=== PATIENT | male | born 1980 | race Caucasian/White ===

== ENCOUNTER → 2021-07-01 | Outpatient (CLI) | payer MEDICARE ==
[2021-07-01 14:56] LABS: Basophils # (A) 0.08 X 10*3/uL (0.00-0.10); Basophils % (A) 0.8 %; Eosinophils # (A) 0.32 X 10*3/uL (0.04-0.35); Eosinophils % (A) 3.2 %; HCT 53.2 % (39.6-50.0); HGB 17.8 g/dL (13.0-17.0); Immature Grans, Automated 0.3 %; Lymphocytes # (A) 2.79 X 10*3/uL (0.90-5.00); MCH 28.4 pg (27.0-32.0); MCHC 33.5 g/dL (32.0-37.0); Mean Platelet Volume 9.3 fL (9.5-12.2); Monocytes # (A) 0.97 X 10*3/uL (0.20-1.00); Monocytes % (A) 9.7 %; NRBC Per 100 WBC 0 /100 WBCS (0.0-0.0); Neutrophils # (A) 5.79 X 10*3/uL (1.80-7.70); Platelet Count 375 X 10*3/uL (140-440); RBC 6.26 X 10*6/uL (4.40-5.60); WBC 9.98 X 10*3/uL (4.50-10.00)
[2021-07-01 15:27] LABS: ALT 21 U/L (10-49); AST 20 U/L (14-35); African American GFR (CKD) 110.4 (60.0-200.0); Albumin 5.2 g/dL (3.8-4.9); Alkaline Phosphatase 94 U/L (41-126); Blood Urea Nitrogen 10.1 mg/dL (9.0-27.0); Calcium 10.7 mg/dL (8.7-10.3); Carbon Dioxide 24.6 mmol/L (20.0-27.5); Chloride 101 mmol/L (96-109); Chol/HDL Ratio 7.46 Ratio; Globulin 2.2 g/dL (1.6-3.3); Glucose 93 mg/dL (70-110); Non-African American GFR(CKD) 95.3 (60.0-200.0); Potassium 4.7 mmol/L (3.5-5.5); Sodium 138 mmol/L (135-145); Total Protein 7.4 g/dL (6.2-8.2)
== END | disposition home or self-care (01) ==
LOC: LABWHC1 09:37
PROVIDERS: ATTEND Internal Medicine
DX: E78.5 Hyperlipidemia, unspecified (principal); E83.52 Hypercalcemia; F25.9 Schizoaffective disorder, unspecified
CPT/HCPCS: 36415; 80053; 80061; 85025

== ENCOUNTER → 2021-08-06 | Outpatient (CLI) | payer MEDICARE ==
[2021-08-06 16:10] LABS: ALT 19 U/L (10-49); AST 24 U/L (14-35); African American GFR (CKD) 107.9 (60.0-200.0); Albumin 4.7 g/dL (3.8-4.9); Albumin/Globulin Ratio 2.04 (1.60-3.17); Alkaline Phosphatase 81 U/L (41-126); Blood Urea Nitrogen 11.5 mg/dL (9.0-27.0); Chloride 103 mmol/L (96-109); Chol/HDL Ratio 3.61 Ratio; Creatine Kinase 87 U/L (35-257); Globulin 2.3 g/dL (1.6-3.3); Glucose 86 mg/dL (70-110); LDL Cholesterol,Calculated 91.4 mg/dL (0.0-131.0); Non-African American GFR(CKD) 93.1 (60.0-200.0); Potassium 4.8 mmol/L (3.5-5.5); Sodium 140 mmol/L (135-145)
== END | disposition home or self-care (01) ==
LOC: LABWHC1 08:41
PROVIDERS: ATTEND Internal Medicine
DX: E78.5 Hyperlipidemia, unspecified (principal); E83.52 Hypercalcemia
CPT/HCPCS: 36415; 80053; 80061; 82306; 82550; 83970; 84439; 84443

== ENCOUNTER → 2022-03-09 | Outpatient (CLI) | payer MEDICARE ==
[2022-03-09 15:20] LABS: HCT 48.8 % (39.6-50.0); HGB 16.3 g/dL (13.0-17.0); MCH 30.3 pg (27.0-32.0); MCHC 33.4 g/dL (32.0-37.0); MCV 90.7 fL (80.0-97.0); Mean Platelet Volume 9.8 fL (9.5-12.2); NRBC Per 100 WBC 0 /100 WBCS (0.0-0.0); Platelet Count 377 X 10*3/uL (140-440); RBC 5.38 X 10*6/uL (4.40-5.60); RDW 13.8 % (11.5-14.5); Reticulocyte % 1.83 % (0.10-1.80); WBC 11.29 X 10*3/uL (4.50-10.00)
[2022-03-09 17:32] LABS: ALT 27 U/L (10-49); AST 19 U/L (14-35); African American GFR (CKD) 107.1 (60.0-200.0); Albumin 4.8 g/dL (3.8-4.9); Albumin/Globulin Ratio 2.53 (1.60-3.17); Alkaline Phosphatase 83 U/L (41-126); Blood Urea Nitrogen 9.9 mg/dL (9.0-27.0); Calcium 10.1 mg/dL (8.7-10.3); Chloride 104 mmol/L (96-109); Chol/HDL Ratio 3.77 Ratio; Globulin 1.9 g/dL (1.6-3.3); Glucose 83 mg/dL (70-110); Iron 83 ug/dL (65-175); LDL Cholesterol,Calculated 138.5 mg/dL (0.0-131.0); Non-African American GFR(CKD) 92.4 (60.0-200.0); Potassium 4.9 mmol/L (3.5-5.5); Sodium 143 mmol/L (135-145); Total Protein 6.7 g/dL (6.2-8.2)
== END | disposition home or self-care (01) ==
LOC: LABWHC1 08:09
PROVIDERS: ATTEND Internal Medicine
DX: E78.5 Hyperlipidemia, unspecified (principal); D58.2 Other hemoglobinopathies
CPT/HCPCS: 36415; 80053; 80061; 83540; 85027; 85045

== ENCOUNTER → 2022-09-20 | Outpatient (CLI) | payer MEDICARE | END | disposition home or self-care (01) | LOC: LABWHC1 08:59 | PROVIDERS: ATTEND Internal Medicine | DX: E78.5 Hyperlipidemia, unspecified (principal) ==

== ENCOUNTER → 2022-09-26 | Outpatient (CLI) | payer MEDICARE ==
[2022-09-26 16:54] LABS: ALT 30 U/L (10-49); AST 31 U/L (14-35); Albumin 5.1 d/dL (3.8-4.9); Albumin/Globulin Ratio 2.32 Ratio (1.60-3.17); Alkaline Phosphatase 88 U/L (41-126); BUN/Creat Ratio 13.91 Ratio (12.00-20.00); Blood Urea Nitrogen 15.3 mg/dL (9.0-27.0); Calcium 10.5 mg/dL (8.7-10.3); Carbon Dioxide 20.1 mmol/L (21.6-31.8); Chloride 100 mmol/L (96-109); Chol/HDL Ratio 4.25 Ratio; Creatine Kinase 310 U/L (35-257); Globulin 2.2 d/dL (1.6-3.3); Glucose 100 mg/dL (70-110); LDL Cholesterol,Calculated 125.9 mg/dL (0.0-131.0); Potassium 4.4 mmol/L (3.5-5.5); Sodium 137 mmol/L (135-145); Total Bilirubin 0.5 mg/dL (0.3-1.2); Total Protein 7.3 d/dL (6.2-8.2)
== END | disposition home or self-care (01) ==
LOC: LABWHC1 07:41
PROVIDERS: ATTEND Internal Medicine
DX: E78.5 Hyperlipidemia, unspecified (principal)
CPT/HCPCS: 36415; 80053; 80061; 82550

== ENCOUNTER → 2023-03-20 | Outpatient (CLI) | payer MEDICARE ==
[2023-03-20 18:31] LABS: Chol/HDL Ratio 3.75 Ratio; LDL Cholesterol,Calculated 126.9 mg/dL (0.0-131.0); VLDL Calculation 12.48 mg/dL (5.00-40.00)
[2023-03-20 18:52] LABS: ALT 27 U/L (10-49); AST 39 U/L (14-35); Albumin 4.5 g/dL (3.8-4.9); Albumin/Globulin Ratio 2.05 Ratio (1.60-3.17); Alkaline Phosphatase 83 U/L (41-126); BUN/Creat Ratio 11.44 Ratio (12.00-20.00); Blood Urea Nitrogen 10.3 mg/dL (9.0-27.0); Calcium 10.4 mg/dL (8.7-10.3); Carbon Dioxide 21.1 mmol/L (21.6-31.8); Chloride 106 mmol/L (96-109); Creatine Kinase 170 U/L (35-257); Globulin 2.2 g/dL (1.6-3.3); Glucose 97 mg/dL (70-110); Potassium 5.3 mmol/L (3.5-5.5); Sodium 141 mmol/L (135-145); Total Bilirubin 0.3 mg/dL (0.3-1.2); Total Protein 6.7 g/dL (6.2-8.2)
== END | disposition home or self-care (01) ==
LOC: LABWHC1 09:26
PROVIDERS: ATTEND Internal Medicine
DX: E78.5 Hyperlipidemia, unspecified (principal)
CPT/HCPCS: 36415; 80053; 80061; 82550; 83970

== ENCOUNTER → 2023-12-22 | Outpatient (CLI) | payer MEDICARE ==
[2023-12-22 15:02] LABS: HCT 47.4 % (39.6-50.0); HGB 15.9 g/dL (13.0-17.0); MCH 28.5 pg (27.0-32.0); MCHC 33.5 g/dL (32.0-37.0); MCV 85.1 FL (80.0-97.0); Mean Platelet Volume 9.8 FL (9.5-12.2); NRBC Per 100 WBC 0 X 10*3/uL (0.00-0.01); Platelet Count 352 X 10*3/uL (140-440); RBC 5.57 X 10*6/uL (4.40-5.60); RDW 13.1 % (11.5-14.5); WBC 9.81 X 10*3/uL (4.50-10.00)
[2023-12-22 15:11] LABS: ALT 25 U/L (10-49); AST 23 U/L (14-35); Albumin 4.8 g/dL (3.8-4.9); Albumin/Globulin Ratio 2.29 Ratio (1.60-3.17); Alkaline Phosphatase 96 U/L (41-126); BUN/Creat Ratio 8.11 Ratio (12.00-20.00); Blood Urea Nitrogen 7.3 mg/dL (9.0-27.0); Calcium 10.2 mg/dL (8.7-10.3); Carbon Dioxide 25.2 mmol/L (21.6-31.8); Chloride 106 mmol/L (96-109); Chol/HDL Ratio 3.58 Ratio; Globulin 2.1 g/dL (1.6-3.3); Glucose 91 mg/dL (70-110); Potassium 4.4 mmol/L (3.5-5.5); Sodium 143 mmol/L (135-145); Total Bilirubin 0.4 mg/dL (0.3-1.2); Total Protein 6.9 g/dL (6.2-8.2)
== END | disposition home or self-care (01) ==
LOC: LABWHC1 09:00
PROVIDERS: ATTEND Internal Medicine
DX: E78.5 Hyperlipidemia, unspecified
CPT/HCPCS: 36415; 80053; 80061; 85027

== ENCOUNTER → 2024-10-11 | Outpatient (CLI) | payer MEDICARE ==
[2024-10-11 10:33] LABS: ALT 41 U/L (10-49); AST 29 U/L (14-35); Albumin 4.7 g/dL (3.8-4.9); Albumin/Globulin Ratio 2.14 Ratio (1.60-3.17); Alkaline Phosphatase 102 U/L (41-126); Anion Gap 12.80 mmol/L (4.00-12.00); BUN/Creat Ratio 13.29 Ratio (12.00-20.00); Blood Urea Nitrogen 9.3 mg/dL (9.0-27.0); Calcium 10.0 mg/dL (8.7-10.3); Carbon Dioxide 27.2 mmol/L (21.6-31.8); Chloride 101 mmol/L (96-109); Cholesterol 235.00 mg/dL (0.00-200.00); Creatine Kinase 117 U/L (35-257); Globulin 2.2 g/dL (1.6-3.3); Glucose 93 mg/dL (70-110); HDL Cholesterol 47.80 mg/dL (40.00-60.00); LDL Cholesterol,Calculated 126.0 mg/dL (0.0-131.0); Potassium 4.5 mmol/L (3.5-5.5); Sodium 141 mmol/L (135-145); Total Protein 6.9 g/dL (6.2-8.2); Triglycerides 306.00 mg/dL (0.00-149.00); VLDL Calculation 61.20 mg/dL (5.00-40.00)
== END | disposition home or self-care (01) ==
LOC: LABWHC1 07:26
PROVIDERS: ATTEND Internal Medicine
DX: E78.5 Hyperlipidemia, unspecified (principal)
CPT/HCPCS: 36415; 80053; 80061; 82550